=== PATIENT | female | born 1960 | race Asian ===

== ENCOUNTER → 2016-11-12 | Outpatient (CLI) | payer OTHER ==
[~2016-11-12] VITALS: Ht 165.1 cm; Wt 60.5 kg
[~2016-11-12] MED LIST: ALEN1TAB48 PO; CHLORHEXIDINE GLUCONATE 2 % 1 PACK (2 CLOTHS) TOPICAL PRN; DIPR0.05 TOPICAL; INSULIN HUMAN REGULAR 1,000 UNITS/10 ML VIAL SQ PRN; LACTATED RINGER'S 1000 ML IV PRN; METOPROLOL TARTRATE 25 MG TAB PO PRN; POVIDONE IODINE 5% (ANTISEPSIS KIT) 4 APPLICATIONS EACH NARE PRN; PROPOFOL 200 MG/20 ML AMP IV ONE; SODIUM CHLORID 0.9% 500 ML IV PRN
[2016-11-12 09:15] VITALS: BP 123/82; PULSE 84; RESP 20; TEMP 98.2; O2SAT 99
--- NOTE | 2016-11-12 10:52 | GIPROC ---
[facility] [address] [facility]. [facility], [id number] COLONOSCOPY PROCEDURE REPORT EXAM DATE: 11/12/2016 PATIENT NAME: Kacie Khan MR #: [id number] BIRTHDATE: 1960 ENDOSCOPIST: [Referring Physician] ORDER #: [id number] PLASTIC MIXER: Yoseph Abdi and Carito Courtney STATUS: outpatient INDICATIONS: The patient is a 56 yr old female here for a colonoscopy due to screening colonoscopy, average risk. PROCEDURE PERFORMED: Colonoscopy MEDICATIONS: Per Anesthesia PREP QUALITY: good ESTIMATED BLOOD LOSS: None CONSENT: The patient understands the risks and benefits of the procedure and understands that these risks include, but are not limited to: sedation, allergic reaction, infection, perforation and/or bleeding. Alternative means of evaluation and treatment include, among others: physical exam, x-rays, and/or surgical intervention. The patient elects to proceed with this endoscopic procedure. medical equipment was checked for proper function. Hand hygiene and appropriate measures for infection prevention was taken. After the risks, benefits and alternatives of the procedure were thoroughly explained, Informed consent was verified, confirmed and timeout was successfully executed by the treatment team. A digital exam revealed no abnormalities of the rectum The Pentax [id number] endoscope was introduced through the anus and advanced to the cecum, which was identified by both the appendix and ileocecal valve. The instrument was then slowly withdrawn as the colon was fully examined. COLON FINDINGS: Scant diverticulosis was noted in the sigmoid colon. Retroflexion was performed and was normal The scope was then completely withdrawn from the patient and the procedure terminated. PROCEDURE WITHDRAWAL TIME:6minutes ADVERSE EVENTS: There were no complications. IMPRESSIONS: 1. Diverticulosis was noted in the sigmoid colon 2. Retroflexion was performed and was normal 3. Revealed no abnormalities of the rectum RECOMMENDATIONS: HIgh fiber diet with lots of fluid, daily. RECALL: Return 10 years Colonoscopy [Referring Physician] eSigned: Khoa Mcdonnell MD 11/12/2016 10:51 AM cc:
[2016-11-12 10:53] VITALS: BP 123/75; PULSE 72; RESP 16; TEMP 97.6; O2SAT 100
--- NOTE | 2016-11-12 17:09 | EKG ---
Date Performed: 11/12/2016 Time Performed: 09:26:15 PTAGE: 56 years EKG: Sinus rhythm POSSIBLE RIGHT VENTRICULAR CONDUCTION DELAY VOLTAGE CRITERIA FOR LVH Since previous tracing, no sign ificant change noted ABNORMAL ECG PREVIOUS TRACING : 01/12/2014 11.29 DOCTOR: Lani Jain Interpretating Date/Time 11/12/2016 17:04:32
== END ==
LOC: HEND 08:40
DX: Z12.11 Encounter for screening for malignant neoplasm of colon (principal); K57.90 Diverticulosis of intestine, part unspecified, without perforation or abscess without bleeding; R94.31 Abnormal electrocardiogram [ECG] [EKG]
CPT/HCPCS: 93005

== ENCOUNTER 2017-02-09 12:04 | Emergency (ER) | payer OTHER ==
[~2017-02-09 12:04] MED LIST changes: -CHLORHEXIDINE GLUCONATE 2 % 1 PACK (2 CLOTHS) TOPICAL PRN; -DIPR0.05 TOPICAL; -INSULIN HUMAN REGULAR 1,000 UNITS/10 ML VIAL SQ PRN; -LACTATED RINGER'S 1000 ML IV PRN; -METOPROLOL TARTRATE 25 MG TAB PO PRN; -POVIDONE IODINE 5% (ANTISEPSIS KIT) 4 APPLICATIONS EACH NARE PRN; -PROPOFOL 200 MG/20 ML AMP IV ONE; -SODIUM CHLORID 0.9% 500 ML IV PRN
[2017-02-09 12:06] VITALS: BP 134/78; PULSE 122; RESP 16; TEMP 102.2; O2SAT 98
[2017-02-09] MEDS ORDERED: ACETAMINOPHEN 500 MG CPLT PO ONE (12:15)
[2017-02-09 12:58] LABS: BASOPHIL % 0.2 % (0.0-2.0); EOSINOPHIL % 0.3 % (0.0-4.0); HEMATOCRIT 34.5 % (35.0-46.0); HEMO FLAGS DIFF FINAL; LYMPH % 9.6 % (9.0-44.0); LYMPHOCYTE # 0.9 TH/MM3 (1.0-4.8); MEAN CELL VOLUME 90.7 FL (80.0-100.0); MEAN CORPUSCULAR HEMOGLOBIN 30.3 PG (27.0-34.0); MEAN CORPUSCULAR HGB CONC 33.4 % (32.0-36.0); MONO % 6.3 % (0.0-8.0); NEUT % 83.6 % (16.0-70.0); PLATELET COUNT 437 TH/MM3 (150-450); RED CELL DISTRIBUTION WIDTH 12.8 % (11.6-17.2); WHITE BLOOD COUNT 9.6 TH/MM3 (4.0-11.0)
[2017-02-09 13:02] LABS: BLOOD, URINE MOD (NEG); GLUCOSE,URINE NEG (NEG); KETONE, URINE 10 mg/dL (NEG); MUCUS URINE FEW /lpf (OCC); NITRITE,URINE NEG (NEG); SQUAMOUS EPITHELIAL CELL URINE 3 /hpf (0-5); TRANSITIONAL EPI CELLS, URINE <1 /hpf; URINE COLOR YELLOW (YELLW/STRAW)
[2017-02-09 13:03] LABS: COMMENT (UR) CATH-CULTURE IND; CULTURE IF INDICATED CATH CULTURE IND
--- NOTE | 2017-02-09 13:10 | PD ---
HPI Chief Complaint: ENT Complaint Time Seen by Provider: 12:58 Travel History International Travel<30 days: No Contact w/Intl Traveler<30days: No Traveled to known affect area: No History of Present Illness HPI 56 YO F presents to the ED via EMS for evaluation of a 3 week history of sore throat, fevers and "feeling tired." Pain rated 10/10. She endorses nonproductive cough. She denies wheezing, difficulties breathing, ear pain, sinus congestion. She states that the pain is worsened by swallowing but she has been able to eat and drink. She endorses mild nausea, denies vomiting. She did not receive this years flu vaccine. She was seen at [facility] and [facility]. She was prescribed Augmentin and Levaquin. She states that she was compliant with medications. She had an allergy to IV contrast dye. The patient speaks Monegasque primarily. All communication was done through [employer] translation services. PFSH Past Medical History Cancer: Yes (BREATS) Chemotherapy: Yes Past Surgical History Other Surgery: Yes (LEFT MASTECTOMY ) Social History Alcohol Use: No Tobacco Use: No Substance Use: No Allergies-Medications (Allergen,Severity, Reaction): Coded Allergies: diatrizoate meglumine (Unverified Allergy, Severe, PT HAD A REACTION TO CT CONTRAST@[facility] (03-04-06 ADB), 10/28/16) gadobenic acid (Unverified Allergy, Severe, PT HAD A REACTION TO CT CONTRAST@[facility] (03-04-06 ADB), 10/28/16) gadodiamide (Unverified Allergy, Severe, PT HAD A REACTION TO CT CONTRAST@ [facility] (03-04-06 ADB), 10/28/16) gadoteridol (Unverified Allergy, Severe, PT HAD A REACTION TO CT CONTRAST@ [facility] (03-04-06 ADB), 10/28/16) iodixanol (Unverified Allergy, Severe, PT HAD A REACTION TO CT CONTRAST@ [facility] (03-04-06 ADB), 10/28/16) iohexol (Unverified Allergy, Severe, PT HAD A REACTION TO CT CONTRAST@ [facility] (03-04-06 ADB), 10/28/16) Reported Meds & Prescriptions Reported Meds & Active Scripts Active Magic Mouthwash Adult Liq (Multi-Ingredient Mouthwash/Gargle) 120 Ml Susp 10 Ml SWISH-SPIT ACHS 5 Days Each 5mL contains: Nystatin 200,000units, Diphenhydramine 4.25mg, Viscous Lidocaine 10mg, Hernandes syrup 0.8 mL Macrobid (Nitrofurantoin Monoh/Nitrofur Macro) 100 Mg Cap 100 Mg PO BID 7 Days Reported Alendronate (Alendronate Sodium) 70 Mg Tab 70 Mg PO Q7D Review of Systems Except as stated in HPI: all other systems reviewed are Neg Physical Exam Narrative GENERAL: Well-nourished, well-developed nontoxic-appearing female in no acute distress. SKIN: Focused skin assessment warm/dry. HEAD: Normocephalic. EYES: No scleral icterus. No injection or drainage. ENT: Pearly beaulieu tympanic membranes bilaterally. Oropharynx without erythema, edema, exudate. Uvula midline. Airway patent. Floor of the mouth is soft. NECK: Supple, trachea midline. No JVD or lymphadenopathy. CARDIOVASCULAR: Regular rate and rhythm without murmurs, gallops, or rubs. RESPIRATORY: Breath sounds clear and equal bilaterally. No accessory muscle use. GASTROINTESTINAL: Abdomen soft, non-tender, nondistended. Active bowel sounds MUSCULOSKELETAL: No cyanosis, or edema. BACK: Nontender without obvious deformity. No CVA tenderness. Data Data Last Documented VS Vital Signs Date Time Temp Pulse Resp B/P (MAP) Pulse Ox O2 Delivery O2 Flow Rate FiO2 02/09/17 16:25 98.3 02/09/17 15:17 18 02/09/17 15:00 100 98 Room Air Orders Orders Sepsis Workup Initiated (02/09/17 ) Electrocardiogram (02/09/17 12:10) Complete Blood Count With Diff (02/09/17 12:10) Comprehensive Metabolic Panel (02/09/17 12:10) Lactic Acid Sepsis Protocol (02/09/17 12:10) Urinalysis - C+S If Indicated (02/09/17 12:10) Influenzae A/B Antigen (02/09/17 12:10) Blood Culture (02/09/17 12:10) Soft Tissue Neck (02/09/17 ) Acetaminophen (Tylenol) (02/09/17 12:15) Coag Profile (02/09/17 12:42) Chest, Pa & Lat (02/09/17 12:10) Group A Rapid Strep Screen (02/09/17 12:58) Urine Culture (02/09/17 12:40) Iv Access Insert/Monitor (02/09/17 13:32) Sodium Chlor 0.9% 1000 Ml Inj (Ns 1000 M (02/09/17 13:45) Ondansetron Inj (Zofran Inj) (02/09/17 13:45) Ceftriaxone Inj (Rocephin Inj) (02/09/17 13:45) Sodium Chlor 0.9% 1000 Ml Inj (Ns 1000 M (02/09/17 14:30) Ed Discharge Order (02/09/17 16:20) Strep Culture (Group A) (02/09/17 16:20) Labs Laboratory Tests Test 02/09/17 12:35 02/09/17 12:40 White Blood Count 9.6 TH/MM3 Red Blood Count 3.80 MIL/MM3 Hemoglobin 11.5 GM/DL Hematocrit 34.5 % Mean Corpuscular Volume 90.7 FL Mean Corpuscular Hemoglobin 30.3 PG Mean Corpuscular Hemoglobin Concent 33.4 % Red Cell Distribution Width 12.8 % Platelet Count 437 TH/MM3 Mean Platelet Volume 6.4 FL Neutrophils (%) (Auto) 83.6 % Lymphocytes (%) (Auto) 9.6 % Monocytes (%) (Auto) 6.3 % Eosinophils (%) (Auto) 0.3 % Basophils (%) (Auto) 0.2 % Neutrophils # (Auto) 8.0 TH/MM3 Lymphocytes # (Auto) 0.9 TH/MM3 Monocytes # (Auto) 0.6 TH/MM3 Eosinophils # (Auto) 0.0 TH/MM3 Basophils # (Auto) 0.0 TH/MM3 CBC Comment DIFF FINAL Differential Comment Blood Urea Nitrogen 13 MG/DL Creatinine 0.74 MG/DL Random Glucose 135 MG/DL Total Protein 8.8 GM/DL Albumin 3.1 GM/DL Calcium Level 9.1 MG/DL Alkaline Phosphatase 93 U/L Aspartate Amino Transf (AST/SGOT) 22 U/L Alanine Aminotransferase (ALT/SGPT) 57 U/L Total Bilirubin 0.3 MG/DL Sodium Level 136 MEQ/L Potassium Level 3.0 MEQ/L Chloride Level 101 MEQ/L Carbon Dioxide Level 30.0 MEQ/L Anion Gap 5 MEQ/L Estimat Glomerular Filtration Rate 82 ML/MIN Lactic Acid Level 1.7 mmol/L Urine Color YELLOW Urine Turbidity CLEAR Urine pH 7.0 Urine Specific [place] 1.017 Urine Protein TRACE mg/dL Urine Glucose (UA) NEG mg/dL Urine Ketones 10 mg/dL Urine Occult Blood MOD Urine Nitrite NEG Urine Bilirubin NEG Urine Urobilinogen LESS THAN 2.0 MG/DL Urine Leukocyte Esterase LARGE Urine RBC 37 /hpf Urine WBC 16 /hpf Urine Squamous Epithelial Cells 3 /hpf Urine Transitional Epithelial Cells <1 /hpf Urine Mucus FEW /lpf Microscopic Urinalysis Comment CATH-CULTURE IND MDM Medical Decision Making Medical Screen Exam Complete: Yes Emergency Medical Condition: Yes Differential Diagnosis Pharyngitis versus strep pharyngitis versus peritonsillar abscess versus other Narrative Course 56 YO F presents to the ED for evaluation of 3 week history of sore throat, fevers and "feeling tired." Pain rated 10/10, worsened by swallowing. Has been able to eat and drink. She endorses nonproductive cough. She endorses mild nausea, denies vomiting. She did not receive this years flu vaccine. She was seen at [facility], prescribed Augmentin and Levaquin. The patient speaks Monegasque primarily. All communication was done through [employer] translation services. Vitals reviewed. Patient's febrile 102.2, heart rate 122 on presentation. ENT exam is unremarkable. Uvula midline. Airway patent. No palatal edema noted. Floor the mouth is soft. No cervical LAD noted. Chest CTAB. Abdomen soft and nontender. IV was established. Patient was administered 2 L normal saline IV, 1 g Tylenol by mouth. CBC: WBC 9.6. Hemoglobin 11.5. CMP: BUN 13, creatinine 0.74. Lactic acid 1.7. UA: Moderate occult blood, large leukocyte Estrace, RBCs 37, WBC 16. Culture pending. CXR: No acute disease per radiology read. XR SOFT TISSUE NECK: no radiopaque foreign body. Mild cervical degenerative changes per radiology read. The patient was administered a gram of Rocephin IV. On recheck she reports feeling better. Vitals are now within normal limits. I discussed the results of the workup with the patient via [facility]. She is prescribed Macrobid 100 mg twice a day 7 days and Magic mouthwash 4 times a day when necessary sore throat. She is instructed to continue with Tylenol every 6-8 hours for the next 24 hours. She is instructed to return to the ED should her symptoms worsen. I informed the patient that blood cultures are pending and the hospital would be in touch should adjustments in the medications be necessary. The patient and her indicated understanding of instructions and are agreeable to the plan. This patient is stable and discharged home. Diagnosis Primary Impression: Urinary tract infection Qualified Codes: N39.0 - Urinary tract infection, site not specified; R31.9 - Hematuria, unspecified Additional Impression: Pharyngitis Qualified Codes: J02.9 - Acute pharyngitis, unspecified Referrals: Primary Care Physician Patient Instructions: General Instructions, Pharyngitis (ED), Urinary Tract Infection in Women (ED) Additional Instructions: Rest, hydrate. Take all antibiotics as they are prescribed. Continue with Tylenol every 6-8 hours as needed for fever for the next 24 hours. Use Magic Mouthwash gargle and spit as needed for sore throat. Blood cultures are pending. We will call you if we need to change your antibiotic or call you back to the hospital. Follow-up with the primary care provider this week. Return to the ED for worsening symptoms or any urgent or emergent medical condition. Med/Other Pt SpecificInfo: Prescription(s) given Scripts [id number] Liq (Magic Mouthwash Adult Liq) 120 Ml Susp 10 ML SWISH-SPIT ACHS for Sore Throat for 5 Days, #120 ML 0 Refills Each 5mL contains: Nystatin 200,000units, Diphenhydramine 4.25mg, Viscous Lidocaine 10mg, Hernandes syrup 0.8 mL Prov: Bhargav Douglas MD 02/09/17 Nitrofurantoin Monohydrate Macrocrystals (Macrobid) 100 Mg Cap 100 MG PO BID for Infection for 7 Days, #14 CAP 0 Refills Prov: Bhargav Douglas MD 02/09/17 Disposition: 01 DISCHARGE HOME Condition: Stable [place] Feb 09, 2017 13:09
[2017-02-09 13:12] LABS: ALT (GPT) 57 U/L (10-53); ANION GAP 5 MEQ/L (5-15); AST (GOT) 22 U/L (15-37); BLOOD UREA NITROGEN 13 MG/DL (7-18); CHLORIDE 101 MEQ/L (98-107); GLOMERULAR FILTRATION RATE 82 ML/MIN (>89); SODIUM (NA) 136 MEQ/L (136-145)
[2017-02-09 13:15] LABS: ALKALINE PHOSPHATASE 93 U/L (45-117); TOTAL BILIRUBIN ADULT 0.3 MG/DL (0.2-1.0)
--- NOTE | 2017-02-09 13:18 | RADRPT ---
EXAM DATE/TIME: 02/09/2017 12:47 [facility] COMPARISON: No previous studies available for comparison. INDICATIONS : Patient states she feels something is stuck in her throat and is short of breath. MEDICAL HISTORY : None. SURGICAL HISTORY : None. ENCOUNTER: Initial ACUITY: 1 day PAIN SCORE: 0/10 LOCATION: Bilateral chest FINDINGS: PA and lateral views of the chest demonstrate the lungs to be symmetrically aerated without evidence of mass, infiltrate or effusion. The cardiomediastinal contours are unremarkable. Osseous structure s are intact. CONCLUSION: No acute disease. Cristo Lucio MD FACR on February 09, 2017 at 13:14 Board Certified Radiologist. This report was verified electronically.
--- NOTE | 2017-02-09 13:21 | RADRPT ---
EXAM DATE/TIME: 02/09/2017 12:49 [facility] COMPARISON: No previous studies available for comparison. INDICATIONS : Patient states she feels something is stuck in her throat and is short of breath. MEDICAL HISTORY : None. SURGICAL HISTORY : None. ENCOUNTER: Initial ACUITY: 1 day PAIN SCORE: 4/10 LOCATION: Bilateral Esophagus FINDINGS: Two view examination of the soft tissues of the neck demonstrates the hypopharyngeal airway to have a grossly normal configuration. The trachea is midline. No radiopaque foreign bodies are seen. CONCLUSION: Negative for radiopaque foreign body. Mild degenerative changes cervical spine. Cristo Lucio MD FACR on February 09, 2017 at 13:19 Board Certified Radiologist. This report was verified electronically.
[2017-02-09] MEDS ORDERED: ONDANSETRON HCL 4 MG/2 ML VIAL IV PUSH ONE (13:45)
[2017-02-09] MEDS ORDERED: cefTRIAXone INJ 1,000 MG in SODIUM CHLORIDE 0.9% INJ 100 ML IV ONE (13:45)
[2017-02-09] MEDS ORDERED: SODIUM CHLOR 0.9% 1000 ML INJ 1,000 ML IV ONE ×2 (13:45→14:30)
[2017-02-09 15:00] VITALS: BP 100/62; PULSE 100; RESP 18; O2SAT 98
[2017-02-09 15:17] VITALS: RESP 18
[2017-02-09] MEDS ORDERED: MACR100C2 PO (16:16)
[2017-02-09] MEDS ORDERED: MAGICADU2 SWISH-SPIT (16:16)
[2017-02-09 16:25] VITALS: TEMP 98.3
--- NOTE | 2017-02-10 16:24 | EKG ---
Date Performed: 02/09/2017 Time Performed: 12:16:47 PTAGE: 56 years EKG: SINUS TACHYCARDIA POSSIBLE LEFT ATRIAL ENLARGEMENT POSSIBLE RIGHT VENTRICULAR CONDUCTION DE LAY NONSPECIFIC ST ELEVATION ABNORMAL RHYTHM ECG Compared to prior electrocardiogram, rate has increa sed . PREVIOUS TRACING : 11/12/2016 09.26 DOCTOR: Felipe Ortiz Interpretating Date/Time 02/10/2017 16:23:16
== END 2017-02-09 17:04 | disposition home or self-care (01) ==
LOC: NEPC 12:04
DX: N39.0 Urinary tract infection, site not specified (principal); R31.9 Hematuria, unspecified; J02.9 Acute pharyngitis, unspecified; R11.0 Nausea; R05 Cough; R00.0 Tachycardia, unspecified; R94.31 Abnormal electrocardiogram [ECG] [EKG]
CPT/HCPCS: 70360; 71020; 80053; 81001; 83605; 85025; 87040; 87081; 87086; 87804; 87880; 93005; 96365; 96375; 99285; J0696; J2405; J7030